=== PATIENT | female | born 1945 | race Caucasian/White ===

== ENCOUNTER 2016-11-03 00:51 | Emergency (ER) | payer MEDICARE, OTHER ==
[2016-11-03 03:38] LABS: HEMOGLOBIN 11.2 gm/dl (12.3-15.3); RED BLOOD COUNT 3.88 M/UL (4.00-5.10); WHITE BLOOD COUNT 15.9 K/UL (4.5-11.0)
[2016-11-03 03:58] LABS: BUN/CREATININE RATIO 15 (0-10)
== END 2016-11-03 06:10 | disposition home or self-care (01) ==
LOC: ER1 00:51
PROVIDERS: Physician Assistant
DX: J44.0 Chronic obstructive pulmonary disease with (acute) lower respiratory infection (principal); J20.9 Acute bronchitis, unspecified; I25.810 Atherosclerosis of coronary artery bypass graft(s) without angina pectoris; I10 Essential (primary) hypertension; Z95.1 Presence of aortocoronary bypass graft; Z87.891 Personal history of nicotine dependence; Z79.82 Long term (current) use of aspirin; Z99.81 Dependence on supplemental oxygen; Z88.0 Allergy status to penicillin; Z88.5 Allergy status to narcotic agent
CPT/HCPCS: 36415; 36600; 71020; 80053; 82550; 82553; 82803; 83605; 83874; 84484; 85025; 87040; 93005; 94640; 94664; 96374; 99285; J2930

== ENCOUNTER 2016-11-07 14:37 | Inpatient (IN) | payer MEDICARE, OTHER ==
[~2016-11-07] VITALS: Ht 160 cm; Wt 49.4 kg
[2016-11-07 20:36] LABS: HEMOGLOBIN 12.8 gm/dl (12.3-15.3); RED BLOOD COUNT 4.42 M/UL (4.00-5.10)
[2016-11-08] MEDS ORDERED: OMEPRAZOLE20 M1 PO (02:42)
[2016-11-08] MEDS ORDERED: LOPRESSOR 25 MG25 MG PO (02:43)
[2016-11-08] MEDS ORDERED: LIPITOR TAB 2020 MG PO (02:43)
[2016-11-08] MEDS ORDERED: FLOVENT DISKUS50 MCG INH (02:44)
[2016-11-08] MEDS ORDERED: ASPIRIN CHEWABL81 MG PO (02:44)
[2016-11-08] MEDS ORDERED: VITAMIN D-32000 UNI1 PO (02:44)
[2016-11-08] MEDS ORDERED: ZESTRIL5 MG PO (02:45)
[2016-11-08] MEDS ORDERED: ALL DAY ALLERGY10 M3 PO (02:45)
[2016-11-08] MEDS ORDERED: CLARITIN 10MG T10 MG PO (02:46)
[2016-11-08] MEDS ORDERED: FERROUSUL325 MG PO (02:46)
[2016-11-08 04:55] LABS: HEMOGLOBIN 12.5 gm/dl (12.3-15.3); RED BLOOD COUNT 4.32 M/UL (4.00-5.10); WHITE BLOOD COUNT 13.4 K/UL (4.5-11.0)
[2016-11-08] MEDS ORDERED: BRILINTA 90 MG90 MG PO (17:17)
== END 2016-11-08 15:55 | disposition short-term general hospital (02) | DRG 281 ==
LOC: ER1 14:37 → PROG CARE 22:29 → ZEROF 22:29 → PROG CARE 11-08 02:10
PROVIDERS: Physician Assistant; ADMIT Internal Medicine
PROC: B2111ZZ Fluoroscopy of Multiple Coronary Arteries using Low Osmolar Contrast (ICD-10-PCS; principal; 2016-11-08)
DX: I21.4 Non-ST elevation (NSTEMI) myocardial infarction (principal); J44.1 Chronic obstructive pulmonary disease with (acute) exacerbation; E87.2 Acidosis; N17.9 Acute kidney failure, unspecified; I25.810 Atherosclerosis of coronary artery bypass graft(s) without angina pectoris; Z95.1 Presence of aortocoronary bypass graft; J38.00 Paralysis of vocal cords and larynx, unspecified; I10 Essential (primary) hypertension; E78.5 Hyperlipidemia, unspecified; G47.33 Obstructive sleep apnea (adult) (pediatric); K21.9 Gastro-esophageal reflux disease without esophagitis; Z87.891 Personal history of nicotine dependence; Z99.81 Dependence on supplemental oxygen; Z93.0 Tracheostomy status; I25.2 Old myocardial infarction; Z82.49 Family history of ischemic heart disease and other diseases of the circulatory system; Z72.3 Lack of physical exercise; Z88.0 Allergy status to penicillin; Z79.82 Long term (current) use of aspirin; Z79.899 Other long term (current) drug therapy; Z88.5 Allergy status to narcotic agent
CPT/HCPCS: 36415; 71010; 80053; 80061; 82550; 82553; 83735; 83874; 84443; 84484; 85025; 85347; 85610; 85730; 87040; 87070; 87205; 93005; 94640; 94664; 96374; 99285; C1757; C1769; C1887; J0461; J0583; J1644; J2250; J2920; J2930; J3010; J7030; J7040; Q9965

== ENCOUNTER 2016-11-12 10:07 | Emergency (ER) | payer MEDICARE, OTHER ==
[~2016-11-12 10:07] MED LIST: ALL DAY ALLERGY10 M3 PO; ASPIRIN CHEWABL81 MG PO; BRILINTA 90 MG90 MG PO; CLARITIN 10MG T10 MG PO; FERROUSUL325 MG PO; FLOVENT DISKUS50 MCG INH; LIPITOR TAB 2020 MG PO; LOPRESSOR 25 MG25 MG PO; OMEPRAZOLE20 M1 PO; VITAMIN D-32000 UNI1 PO; ZESTRIL5 MG PO
[2016-11-12 11:04] LABS: RED BLOOD COUNT 2.73 M/UL (4.00-5.10); WHITE BLOOD COUNT 21.7 K/UL (4.5-11.0)
[2016-11-12 11:09] LABS: BUN/CREATININE RATIO 28 (0-10)
[2016-11-12 11:19] LABS: HEMOGLOBIN 8.1 gm/dl (12.3-15.3)
== END 2016-11-12 18:30 ==
LOC: ER1 10:07
PROVIDERS: Emergency Medicine
DX: K92.2 Gastrointestinal hemorrhage, unspecified (principal); D62 Acute posthemorrhagic anemia; J44.9 Chronic obstructive pulmonary disease, unspecified; I25.810 Atherosclerosis of coronary artery bypass graft(s) without angina pectoris; Z95.1 Presence of aortocoronary bypass graft; Z88.0 Allergy status to penicillin; Z88.5 Allergy status to narcotic agent; Z79.82 Long term (current) use of aspirin; Z79.899 Other long term (current) drug therapy
CPT/HCPCS: 71020; 80053; 82272; 82550; 82553; 83690; 83874; 83880; 84484; 85025; 85610; 85730; 87070; 87205; 93005; 94640; 94664; 96374; 96375; 99291; C9113; J2930